=== PATIENT | male | born 1975 | race Caucasian/White ===

== ENCOUNTER 2021-08-07 01:49 | Emergency (ER) | payer OTHER, SELFPAY ==
[2021-08-07 01:58] VITALS: BP 147/82; PULSE 62; RESP 18; TEMP 36.6; O2SAT 98; BMI 24.5
--- NOTE | 2021-08-07 02:03 | CTR_ITS ---
PROCEDURE INFORMATION: Exam: CT Abdomen And Pelvis Without Contrast Exam date and time: 08/07/2021 2:18 AM Age: 46 years old Clinical indication: Abdominal pain; Right; Prior surgery; Surgery type: Pediatric hernia repair; Patient HX: C/O RT flank pain. ; Additional info: Right flank pain TECHNIQUE: Imaging protocol: Computed tomography of the abdomen and pelvis without contrast. Radiation optimization: All CT scans at this facility use at least one of these dose optimization techniques: automated exposure control; mA and/or kV adjustment per patient size (includes targeted exams where dose is matched to clinical indication); or iterative reconstruction. COMPARISON: No relevant prior studies available. RADIATION DOSE METRICS: Total DLP (mGy-cm): 1034.75 FINDINGS: Lungs: The visualized lung bases demonstrate no focal airspace opacification or pleural effusion. Heart: The visualized heart is within normal limits for size. There is no evidence of pericardial abnormality. Liver: 7 mm round, hypoattenuating probable cyst in hepatic segment 2/4A (series 2, image 20 densities.The liver is normal in size and contour. Gallbladder and bile ducts: The gallbladder is distended with normal wall thickness and does not demonstrate calcified gallstones. No intra- or extra-hepatic biliary ductal dilatation. Pancreas: The pancreas appears normal. Spleen: The spleen appears normal. Adrenal glands: The adrenals appear normal. Kidneys and ureters: 4 mm stone at the right ureterovesical junction causing hydroureter and mild hydronephrosis. No significant perinephric fat stranding identified. Mild distal right periureteral fat stranding. No left-sided nephrolithiasis or signs of urinary obstruction. Stomach and bowel: The stomach is appropriately distended and without wall abnormalities. The small bowel loops are not abnormally dilated. A few colonic diverticula noted. No signs of acute diverticulitis. Appendix: The appendix appears normal. Intraperitoneal space: No ascites or significant fluid collection. Vasculature: The aorta is nonaneurysmal. The IVC appears normal. Lymph nodes: A few mildly prominent but not significantly enlarged left mesenteric lymph nodes with minimal fat stranding noted. Urinary bladder: The urinary bladder is not well distended, therefore not well evaluated. Reproductive: The prostate is unremarkable. The seminal vesicles are unremarkable. Bones/joints: Review of the bone windows demonstrates no significant abnormality. Soft tissues: Unremarkable. CT/CT kidney stone [id number] IMPRESSION: 1. Obstructing 4 mm stone in the distal right ureterovesical junction with hydronephrosis and mild hydroureter. No significant perinephric fat stranding identified. Mild distal right periureteral fat stranding. 2. Non-specific mildly prominent but not significantly enlarged left mesenteric lymph nodes with minimal fat stranding noted. 3. Colonic diverticulosis without evidence of acute diverticulitis. COMMENTS: Evaluation of solid organs and vascular structures is limited as no IV contrast was administered.
--- NOTE | 2021-08-07 02:10 | ED_ITS ---
HPI - Abdominal Pain General: Chief Complaint: Abdominal Pain Stated Complaint: Kidney stones Time Seen by Provider: 08/07/21 01:55 Source: patient Mode of arrival: ambulatory Limitations: no limitations History of Present Illness: 46-year-old male who states that he started having sudden onset of right flank pain 1 hour ago. He states the pain is severe and radiates down to his groin states pain currently is a 9 out of 10 is causing vomiting. He denies any worsening improving factors no history of kidney stones. Associated Symptoms: Reports nausea and vomiting; Denies chills and fever(s) Review of Systems Const: Denies: fever(s), chills, body aches or change in appetite Eyes: Denies: blurry vision or eye discomfort ENMT: Denies: throat pain or dental pain Card: Denies: chest pain Resp: Denies: dyspnea GI: Reports: nausea and vomiting : Reports: flank pain and difficulty urinating Musc: Denies: neck pain or back pain Skin/Breast: Denies: rash Neuro: Denies: headache(s) Psych: Denies: depression Efrain/Lymph: Denies: easy bruising All/Imm: Denies: urticaria PFS ED PFSH: Medical History (Updated 08/07/21 @ 02:34 by Lena De Luna MD) No pertinent past medical history Social History (Updated 08/07/21 @ 02:11 by Lena De Luna MD) Substance/Drug Use: never Physical Exam Const: COMMON NORMALS: no acute distress, patient oriented x3 and healthy appearing HENMT: COMMON NORMALS: normocephalic and atraumatic HEAD & SCALP: normocephalic and atraumatic Eye: COMMON NORMALS: Equal, round and reactive pupils present and EOMs intact bilaterally PUPIL: Yes Equal, round and reactive pupils present Neck/C-Spine: COMMON NORMALS: full ROM and supple Chest: COMMONS NORMALS: normal inspection of the chest and normal palpation of entire chest wall Resp: COMMON NORMALS: normal respiratory effort, No retractions, No use of accessory muscles and clear to auscultation bilaterally AUSCULTATION: clear to auscultation bilaterally Cardio: COMMON NORMALS: regular rate, regular rhythm and No murmurs present (Cardio) RATE: regular rate RHYTHM: regular rhythm GI: COMMON NORMALS: Normal to inspection, nondistended, normoactive bowel sounds present, Soft to palpation, non-tender and no masses PALPATION: Yes Soft to palpation Extremity: COMMON NORMALS: normal to inspection and full ROM Neuro: COMMON NORMALS: patient oriented x3, moves all extremities and no focal motor deficits Psych: COMMON NORMALS: mental status grossly normal, Normal thought process present and cooperative THOUGHT PROCESS: Normal thought process present Skin: COMMON NORMALS: no rashes or lesions noted and no wounds GENERAL SKIN EXAM: no rashes or lesions noted Course Vital Signs: Vital signs: Vital Signs Temperature 97.8 F 08/07/21 01:58 Pulse Rate 62 08/07/21 01:58 Respiratory Rate 18 08/07/21 03:01 Blood Pressure 147/82 08/07/21 01:58 Pulse Oximetry 98 08/07/21 01:58 MDM - Abdominal Pain Medical Decision Making Patient presents here with flank pain was found to have a kidney stone his pain is much improved here he is stable for discharge will prescribe pain meds given follow-up with urology and return if worsening he understands agrees to plan. Lab Data Labs/Radiology: Radiology Impressions Abdomen/Pelvis CT 08/07/21 02:03 IMPRESSION: 1. Obstructing 4 mm stone in the distal right ureterovesical junction with hydronephrosis and mild hydroureter. No significant perinephric fat stranding identified. Mild distal right periureteral fat stranding. 2. Non-specific mildly prominent but not significantly enlarged left mesenteric lymph nodes with minimal fat stranding noted. 3. Colonic diverticulosis without evidence of acute diverticulitis. COMMENTS: Evaluation of solid organs and vascular structures is limited as no IV contrast was administered. Laboratory Results Urine Color Dark yellow (Yellow) 08/07/21 03:20 Urine Appearance Cloudy (CLEAR) 08/07/21 03:20 Urine pH 5 (5-7) 08/07/21 03:20 Ur Specific [place] 1.030 (1.005-1.030) 08/07/21 03:20 Urine Protein 1+ (Negative) H 08/07/21 03:20 Urine Glucose (UA) Norm (Normal) 08/07/21 03:20 Urine Ketones 1+ (Negative) H 08/07/21 03:20 Urine Blood 3+ (Negative) H 08/07/21 03:20 Urine Nitrate Positive (Negative) H 08/07/21 03:20 Urine Bilirubin 1+ (Negative) H 08/07/21 03:20 Urine Urobilinogen 1 mg/dL (Negative) H 08/07/21 03:20 Ur Leukocyte Esterase Trace (Negative) H 08/07/21 03:20 Urine RBC >100 /hpf (0-2) H 08/07/21 03:20 Urine WBC 5-10 /hpf (0-5) H 08/07/21 03:20 Ur Squamous Epith Cells 0-4 /hpf (0-5) H 08/07/21 03:20 Amorphous Sediment Not Reportable 08/07/21 03:20 Urine Bacteria Trace /hpf (NONE) 08/07/21 03:20 Urine Mucus Trace /hpf 08/07/21 03:20 Discharge Plan Discharge Patient Disposition: Home Clinical Impression: Kidney stone Prescriptions: New hydrocodone-acetaminophen 5-325 mg tablet 1 tab PO Q6H PRN (Reason: pain) Qty: 14 0RF ondansetron 4 mg tablet,disintegrating 4 mg PO Q6H PRN (Reason: nausea and vomiting) Qty: 14 0RF Discharge Orders: Discharge ED (Routine); Ordered 08/07/21 Ordered By: Lena De Luna Referrals: Oumar Razo MD [Physician] - 1-3 days Discharge Diet: Advance as tolerated Discharge Activity: Resume usual activity Patient Instructions: Kidney Stones (ED), Opioid Safety Coding Level of Care Code ED Kennel Supervisor for Chg Fwd Exam Comprehensive
[2021-08-07 02:28] VITALS: RESP 18
[2021-08-07] MEDS: HYDROmorphone 1 mg/mL INJ 1 mL IVP ×2 (02:28→03:01)
[2021-08-07] MEDS: ondansetron 2 mg/ML SDV 2 mL 4 MG IVP (02:28)
[2021-08-07] MEDS: sodium chloride 0.9% 1,000 ML 999 ML IV (02:29)
[2021-08-07 03:01] VITALS: RESP 18
[2021-08-07 03:43] LABS: Urine Color Dark Yellow (Yellow)
[2021-08-07 03:44] LABS: Add Urine Microscopic? YES; Bilirubin Urine 1+ (Negative); Blood Urine 3+ (Negative); Glucose Urine UA Norm (Normal); Ketones Urine 1+ (Negative); Leukocyte Esterase Urine Trace (Negative); Nitrate Urine Positive (Negative); Protein Urine 1+ (Negative); RBC Urine >100 /hpf (0-2); Urine Appearance Cloudy (CLEAR); Urobilinogen Urine 1 mg/dL (Negative); pH Urine 5 (5-7)
[2021-08-07 03:45] LABS: Add Urine Culture? Yes; Bacteria Urine TRACE /hpf; Mucus Urine TRACE /hpf; Squamous Epithelial Cell Urine 0-4 /hpf (0-5)
[2021-08-07 03:58] VITALS: BP 137/79; PULSE 77; RESP 16; O2SAT 98
--- NOTE | 2021-08-12 07:17 | DCPLANNER ---
Addendum entered by Rossy Mejia 08/15/21 13:31: Patient had a follow up appointment scheduled for 08.08.[address] Razo - patient did attend appointment. Original Note: export freight manager had message to schedule a follow up appointment for patient with urology. export freight manager sent patients information to the front office staff at urology. Patients information will be printed and reviewed. Clinic will call patient with appointment information.
== END 2021-08-07 03:55 | disposition home or self-care (01) ==
PROVIDERS: Emergency Provider Emergency Medicine
DX: N13.2 Hydronephrosis with renal and ureteral calculous obstruction (principal)
CPT/HCPCS: 74176; 81001; 87086; 96361; 96374; 96375; 96376; 99284; J1170; J2405; J7030

== ENCOUNTER 2021-08-08 13:46 | Outpatient (CLI) | payer OTHER, SELFPAY ==
--- NOTE | 2021-08-08 14:15 | XR_ITS ---
WS: [id number] XR KUB [id number] REASON FOR EXAM: Kidney Stone FINDINGS: No intrarenal calculi are identified. No left ureteral calculi are identified. Small calculus identified in the right pelvis which is congruent with the CT finding of right uretera l vesicle junction calculus 08/07/2021. No other significant abnormality. XR/XR KUB [id number] IMPRESSION: Distal right ureteral calculus as above.
== END 2021-08-08 13:47 | disposition home or self-care (01) ==
PROVIDERS: Visit Provider Nurse Practitioner Family
DX: N20.1 Calculus of ureter (principal)
CPT/HCPCS: 74018; 81003

== ENCOUNTER 2021-08-19 06:47 | Outpatient (CLI) | payer OTHER, SELFPAY ==
--- NOTE | 2021-08-19 06:54 | XR_ITS ---
WS: [id number] Exam: XR KUB [id number] Date/Time of Exam: 08/19/2021 7:03 AM Reason For Exam: RIGHT URETERAL CALCULUS Comparison 08/08/2021. No bowel obstruction or free air. No sign of organ enlargement. No abnormal calcifications are identi fied. Previously noted right pelvic calcification is not identified on today's exam. Bony structures appear normal. Slight lumbar scoliosis. XR/XR KUB [id number] IMPRESSION: 1. No acute abdominal process.
== END 2021-08-19 06:48 | disposition home or self-care (01) ==
LOC: RAD 06:49
PROVIDERS: Visit Provider Urology
DX: N20.1 Calculus of ureter (principal)
CPT/HCPCS: 74018; 81003

== ENCOUNTER 2021-10-14 07:06 | Outpatient (CLI) | payer OTHER, SELFPAY ==
--- NOTE | 2021-10-14 09:00 | XR_ITS ---
WS: [id number] XR KUB [id number] REASON FOR EXAM: RIGHT URETERAL CALCULUS FINDINGS: No calculi are identified overlying the kidneys or proximal ureters. No calculus is identified overlying the bladder or distal ureters. No other significant abdominal abnormality is noted. XR/XR KUB [id number] IMPRESSION: No urinary tract calculi identified.
== END 2021-10-14 07:07 | disposition home or self-care (01) ==
PROVIDERS: Visit Provider Urology
DX: N20.1 Calculus of ureter (principal)
CPT/HCPCS: 74018; 81003